=== PATIENT | male | born 1980 | race Caucasian/White ===

== ENCOUNTER 2022-09-26 18:39 | Inpatient (IN) ==
[2022-09-26] MEDS ORDERED: Lactated Ringers 1000 ml BAG 1,000 ML IV ONE (19:01)
[2022-09-26 19:46] LABS: ABS Lymphocytes 0.6 10^3/ul (1.0-4.8); ABS Monocytes 0.5 10^3/ul (0-0.8); ABS Neutrophils 8.5 10^3/ul (1.5-7.7); Hematocrit 38 % (42-52); Hemoglobin 13.1 g/dL (14.0-18.0); Lymphocyte % 6.5 %; Mean Corpuscular HGB Conc 34 g/dL (31-36); Mean Corpuscular Hemoglobin 32 pg (27-31); Mean Corpuscular Volume 93 fL (80-94); Mean Platelet Volume 7.6 fL (7.4-10.4); Platelet Count 194 10^3/uL (150-450); Red Blood Count 4.12 10^6 /uL (4.18-5.48); Red Cell Distribution Width 13 % (10-15); White Blood Count 9.7 10^3/uL (3.5-10.8)
[2022-09-26 20:30] LABS: ALT 62 U/L (7-52); AST 80 U/L (13-39); Albumin 4.7 g/dL (3.2-5.2); Albumin/Globulin Ratio 2.2 (1-3); Alcohol, S < 13 mg/dL (<13); Alkaline Phosphatase 59 U/L (35-149); Anion Gap 16 mmol/L (2-11); Blood Urea Nitrogen 11 mg/dL (6-24); CO2 Carbon Dioxide 23 mmol/L (22-32); Calcium 9.2 mg/dL (8.6-10.3); Chloride 99 mmol/L (101-111); Globulin 2.1 g/dL (2-4); Glucose 112 mg/dL (70-100); Magnesium 1.3 mg/dL (1.9-2.7); Sodium 138 mmol/L (135-145); Total Protein 6.8 g/dL (6.4-8.9); eGFR CKD-EPI 111.4 (>60)
[2022-09-26 20:50] LABS: Urine Benzodiazepine Screen None Detected (None Detect); Urine Cannabinoids Screen None Detected (None Detect); Urine Opiates Screen None Detected (None Detect)
[2022-09-26] MEDS ORDERED: Ondansetron 4 mg VIAL 2 MG/ML 2 ml VIAL IV ONE (21:29)
[2022-09-26] MEDS ORDERED: LORazepam 2 mg VIAL 1 ml IV PUSH ONE (21:29)
[2022-09-26] MEDS ORDERED: Lorazepam PYXIS KEY PRN (21:29)
[2022-09-26] MEDS ORDERED: Magnesium Sulf 4 GM/100 ML IV 4,000 MG/100 ML BAG IVPB ONE (22:01)
[2022-09-26] MEDS ORDERED: LORazepam IV 0-3 mg for WAM protocol IV PUSH SCH (23:00)
[2022-09-26] MEDS ORDERED: LORazepam IM 0-6 mg for WAM protocol IM SCH (23:00)
[2022-09-26] MEDS ORDERED: Al Hydrox/Mg Hydrox/Simet LIQ* 30 ML Q2P GAST DISTRESS PO PRN (23:00)
[2022-09-26] MEDS ORDERED: Acetaminophen TAB* 650 MG PO Q4P PAIN PO PRN (23:00)
[2022-09-27] MEDS: Multivitamins/Minerals TAB PO SCH ×2 (01:31→09:34)
[2022-09-27 06:39] LABS: ABS Lymphocytes 1.1 10^3/ul (1.0-4.8); ABS Monocytes 0.6 10^3/ul (0-0.8); ABS Neutrophils 4.4 10^3/ul (1.5-7.7); Eosinophil % 0.5 %; Hematocrit 37 % (42-52); Hemoglobin 12.5 g/dL (14.0-18.0); Lymphocyte % 18.4 %; Mean Corpuscular HGB Conc 34 g/dL (31-36); Mean Corpuscular Hemoglobin 31 pg (27-31); Mean Corpuscular Volume 94 fL (80-94); Mean Platelet Volume 7.7 fL (7.4-10.4); Platelet Count 178 10^3/uL (150-450); Red Blood Count 3.97 10^6 /uL (4.18-5.48); Red Cell Distribution Width 13 % (10-15); White Blood Count 6.1 10^3/uL (3.5-10.8)
[2022-09-27 07:17] LABS: Albumin 4.2 g/dL (3.2-5.2); Albumin/Globulin Ratio 2.2 (1-3); Calcium 8.8 mg/dL (8.6-10.3); Globulin 1.9 g/dL (2-4); Magnesium 2.5 mg/dL (1.9-2.7); Potassium 3.5 mmol/L (3.5-5.0); Total Bilirubin 1.4 mg/dL (0.2-1.0); Total Protein 6.1 g/dL (6.4-8.9); eGFR CKD-EPI 112.2 (>60)
[2022-09-27 08:13] LABS: C Reactive Protein 4.26 mg/L (<8.01)
[2022-09-28 07:49] LABS: ABS Eosinophils 0.1 10^3/ul (0-0.6); ABS Lymphocytes 1.3 10^3/ul (1.0-4.8); ABS Monocytes 0.5 10^3/ul (0-0.8); ABS Neutrophils 4.3 10^3/ul (1.5-7.7); Eosinophil % 1.3 %; Hematocrit 39 % (42-52); Hemoglobin 13.1 g/dL (14.0-18.0); Lymphocyte % 20.6 %; Mean Corpuscular HGB Conc 34 g/dL (31-36); Mean Corpuscular Hemoglobin 31 pg (27-31); Mean Corpuscular Volume 93 fL (80-94); Mean Platelet Volume 7.7 fL (7.4-10.4); Platelet Count 172 10^3/uL (150-450); Red Blood Count 4.19 10^6 /uL (4.18-5.48); Red Cell Distribution Width 13 % (10-15); White Blood Count 6.2 10^3/uL (3.5-10.8)
[2022-09-28] MEDS: Multivitamins/Minerals TAB PO SCH (08:30)
[2022-09-28 08:32] LABS: Albumin 4.3 g/dL (3.2-5.2); Albumin/Globulin Ratio 2.3 (1-3); Globulin 1.9 g/dL (2-4); Total Bilirubin 1.1 mg/dL (0.2-1.0); Total Protein 6.2 g/dL (6.4-8.9); eGFR CKD-EPI 111.4 (>60)
[2022-09-28 11:50] LABS: Hepatitis B Surface Antigen Nonreactive (Nonreactive)
[2022-09-28 11:56] LABS: Hepatitis A Ab IgM Negative (Negative); Hepatitis B Core IgM Nonreactive (Nonreactive)
[2022-09-28 12:08] LABS: Hepatitis C Antibody Negative (Negative)
[2022-09-28 13:57] VITALS: BP 119/78
== END 2022-09-28 14:04 | disposition home or self-care (01) | DRG 775 ==
LOC: ED 18:39 → EDHOLD 23:03 → SUATTDRO 23:03 → EDHOLD 09-28 14:03
PROVIDERS: ADMIT Internal Medicine; ATTEND Internal Medicine